=== PATIENT | male | born 1995 | race Caucasian/White ===

== ENCOUNTER 2017-05-29 14:45 | Emergency (ER) | payer SELFPAY ==
[~2017-05-29] VITALS: Ht 167.6 cm; Wt 73.0 kg
[2017-05-29 17:07] VITALS: BP 127/90
[2017-05-29] MEDS ORDERED: KETOROLAC 60MG/2ML VIAL IM ONE (17:15)
== END 2017-05-29 17:19 | disposition home or self-care (01) ==
LOC: ER 15:14
DX: M62.838 Other muscle spasm (principal); M54.9 Dorsalgia, unspecified; F12.10 Cannabis abuse, uncomplicated
CPT/HCPCS: 96372; 99283; J1885

== ENCOUNTER 2021-01-30 14:40 | Emergency (ER) | payer SELFPAY ==
[~2021-01-30] VITALS: Ht 172.7 cm; Wt 86.0 kg
[2021-01-30 15:15] VITALS: BP_DIAS 86
[2021-01-30] MEDS ORDERED: IBUPROFEN 600MG TABLET PO ONE (15:15)
[2021-01-30] MEDS ORDERED: IBUP-2028 MT (15:47)
[2021-01-30 16:13] VITALS: BP_SYST 114
== END 2021-01-30 16:18 | disposition home or self-care (01) ==
LOC: ER 14:40
DX: S93.492A Sprain of other ligament of left ankle, initial encounter (principal); X50.1XXA Overexertion from prolonged static or awkward postures, initial encounter; Y93.39 Activity, other involving climbing, rappelling and jumping off; Y92.59 Other trade areas as the place of occurrence of the external cause; Y99.0 Civilian activity done for income or pay; F12.90 Cannabis use, unspecified, uncomplicated
CPT/HCPCS: 73610; 73630; 99284